=== PATIENT | male | born 1985 | race Caucasian/White ===

== ENCOUNTER 2018-02-20 08:57 | Emergency (ER) | payer SELFPAY ==
[~2018-02-20] VITALS: Ht 172.7 cm; Wt 75.0 kg
[2018-02-20 08:58] VITALS: BP 162/80; PULSE 87; RESP 16; TEMP 97.6; O2SAT 99
--- NOTE | 2018-02-20 09:12 | PD ---
HPI Chief Complaint: Injury Time Seen by Provider: 09:10 Travel History International Travel<30 days: No Contact w/Intl Traveler<30days: No Traveled to known affect area: No History of Present Illness HPI 32-year-old male presents emergency department for evaluation right foot pain 7 days. Patient does not recall an injury but states it is very painful around the medial distal aspect of the foot just prior to the great toe. He states that it was swollen but he is now developed a hard knot. Pain is constant, moderate. It is exacerbated with ambulation. He has not taken anything to alleviate it. He has no other symptoms to report. [facility] Past Medical History Medical History: Denies Significant Hx Social History Tobacco Use: Yes Allergies-Medications (Allergen,Severity, Reaction): Coded Allergies: No Known Allergies (Unverified , 02/20/18) Reported Meds & Prescriptions Reported Meds & Active Scripts Active Ibuprofen 800 Mg Tab 800 Mg PO Q8H PRN Review of Systems Except as stated in HPI: all other systems reviewed are Neg Physical Exam Narrative GENERAL: Well-nourished, well-developed male patient in no acute distress SKIN: Focused skin assessment warm/dry. HEAD: Normocephalic. EYES: No scleral icterus. No injection or drainage. NECK: Supple, trachea midline. No JVD or lymphadenopathy. CARDIOVASCULAR: Regular rate and rhythm without murmurs, gallops, or rubs. RESPIRATORY: Breath sounds equal bilaterally. No accessory muscle use. MUSCULOSKELETAL: No cyanosis, or edema. Tenderness elicited palpation over the MCP joint of the right first metatarsal. No deformity. No erythema or edema. BACK: Nontender without obvious deformity. No CVA tenderness. Data Data Last Documented VS Vital Signs Date Time Temp Pulse Resp B/P (MAP) Pulse Ox O2 Delivery O2 Flow Rate FiO2 02/20/18 08:58 97.6 87 16 162/80 (107) 99 Orders Orders Foot, Complete ([id number]) (02/20/18 ) Shoe Post Op (02/20/18 ) Ed Discharge Order (02/20/18 10:26) Shoe Cast (02/20/18 ) MDM Medical Decision Making Medical Screen Exam Complete: Yes Emergency Medical Condition: Yes Medical Record Reviewed: Yes Differential Diagnosis Gout versus arthritis versus sprain versus strain Narrative Course 32-year-old male presents emergency department for evaluation of foot pain. Physical exam is reassuring. There is no deformity. Affected extremity is neurovascularly intact. X-ray imaging confirms no acute bony abnormality. Patient is provided support splint, pain control, he is encouraged to follow-up with a primary care provider. He agrees to return immediately with acute worsening symptoms. Diagnosis Primary Impression: Right foot pain Referrals: Clinic Administrator Primary Care Physician Patient Instructions: General Instructions, Metatarsalgia (DC) Additional Instructions: Ice and elevate to reduce pain Alverto wrap for compression and comfort Postop shoe for support. This may help limit movement and improve your foot pain Follow-up with podiatry Follow-up with primary care provider Return immediately with acute worsening symptoms Med/Other Pt SpecificInfo: Prescription(s) given Scripts Ibuprofen (Ibuprofen) 800 Mg Tab 800 MG PO Q8H Y for Pain/Inflammation, #30 TAB 0 Refills Prov: Elisha Lozano 02/20/18 Disposition: 01 DISCHARGE HOME Condition: Stable Elisha Lozano February 20, 2018 09:12
--- NOTE | 2018-02-20 10:24 | RADRPT ---
EXAM DATE/TIME: 02/20/2018 10:09 [facility] COMPARISON: No previous studies available for comparison. INDICATIONS : Pain base great toe radiating into arch of foot. MEDICAL HISTORY : None. SURGICAL HISTORY : None. ENCOUNTER: Initial ACUITY: 4 - 6 days PAIN SCORE: 4/10 LOCATION: Right foot FINDINGS: Three view examination of the right foot demonstrates no soft tissue swelling, dislocation, or fractu re. The tarsal bones appear intact. The interphalangeal and metatarsophalangeal joints are intact. The calcaneus is intact. Bony mineralization is normal. CONCLUSION: Unremarkable examination. Suleiman Wheeler MD on February 20, 2018 at 10:21 Board Certified Radiologist. This report was verified electronically.
[2018-02-20] MEDS ORDERED: IBUP1TAB7 PO (10:28)
== END 2018-02-20 10:35 | disposition home or self-care (01) ==
LOC: NEPK 08:57
DX: M79.671 Pain in right foot (principal); Z72.0 Tobacco use
CPT/HCPCS: 73630; 99283; L3260

== ENCOUNTER 2018-04-12 12:46 | Emergency (ER) | payer SELFPAY ==
[~2018-04-12] VITALS: Ht 172.7 cm; Wt 74.0 kg
[~2018-04-12 12:46] MED LIST: IBUP1TAB7 PO
[2018-04-12 12:54] VITALS: BP 162/86; PULSE 102; RESP 16; TEMP 98.2; O2SAT 98
[2018-04-12] MEDS ORDERED: PENI500T PO (13:15)
[2018-04-12] MEDS ORDERED: IBUP1TAB7 PO (13:15)
[2018-04-12] MEDS ORDERED: MAGICADU2 SWISH-SPIT (13:15)
[2018-04-12] MEDS ORDERED: ACETAMINOPHEN/HYDROcodone 325 MG/5 MG TAB PO ONE (13:15)
--- NOTE | 2018-04-12 13:31 | PD ---
HPI Chief Complaint: Oral / Dental Pain or Problem Time Seen by Provider: 13:02 Travel History International Travel<30 days: No Contact w/Intl Traveler<30days: No Traveled to known affect area: No History of Present Illness HPI 32-year-old male presents emergency department for evaluation of right-sided jaw and facial pain that started earlier this week. Patient says that he has been "feeling off" this week and thought he may have been developing a sinus infection because of the pain in the right cheek. Says last night the pain increased and the patient became increasingly anxious because of the unusual sensation in his face. Says the pain in his right face is worse with touching and drinking cold fluids. It is relieved when not touched or pressure application. Says that the pain is occasionally severe but goes away within a couple minutes to a mild to moderate level. Says that the pain is sharp and aching. Says the pain radiates from his right jaw into his neck. He denies stiff neck. Denies fevers or chills. Of note, patient says that he was due to have his wisdom teeth removed when he was 18 however, he had no issues that did not have these removed. Also says that his top tooth broke this month after eating the radial and believes also may be a cause of his pain. He is not taking any medication to relieve his pain. He has not seen a dentist or his primary care physician regarding this concern. PFSH Past Surgical History Genitourinary Surgery: Yes (KIDNEY) Social History Alcohol Use: No Tobacco Use: Yes Substance Use: No Allergies-Medications (Allergen,Severity, Reaction): Coded Allergies: No Known Allergies (Unverified , 04/12/18) Reported Meds & Prescriptions Reported Meds & Active Scripts Active Ibuprofen 800 Mg Tab 800 Mg PO Q8H PRN 5 Days Magic Mouthwash Adult Liq (Multi-Ingredient Mouthwash/Gargle) 120 Ml Susp 10 Ml SWISH-SPIT ACHS Each 5mL contains: Nystatin 200,000units, Diphenhydramine 4.25mg, Viscous Lidocaine 10mg, Munoz syrup 0.8 mL Penicillin V Potassium 500 Mg Tab 500 Mg PO Q8H 7 Days Review of Systems Except as stated in HPI: all other systems reviewed are Neg Physical Exam Narrative GENERAL: Well-developed, well-nourished, anxious SKIN: Focused skin assessment warm/dry. HEAD: Atraumatic. Normocephalic. EYES: Pupils equal and round. No scleral icterus. No injection or drainage. ENT: No nasal bleeding or discharge. Mucous membranes pink and moist. NECK: Trachea midline. No JVD. Mild right sided anterior cervical adenopathy. Mild tenderness to palpation of the right jawline without significant edema. Mild tenderness palpation of the posterior upper right gumline without fluctuance. Lower posterior gum line with third molar appearing through the gumline. No fluctuance or discharge from the gums. Unable to locate the area of concern with the tooth fracture and the patient mentioned previously. CARDIOVASCULAR: Regular rate and rhythm. No murmur appreciated. RESPIRATORY: No accessory muscle use. Clear to auscultation. Breath sounds equal bilaterally. MUSCULOSKELETAL: No obvious deformities. No clubbing. No cyanosis. No edema. NEUROLOGICAL: Awake and alert. No obvious cranial nerve deficits. Motor grossly within normal limits. Normal speech. PSYCHIATRIC: Appropriate mood and affect; insight and judgment normal. Data Data Last Documented VS Vital Signs Date Time Temp Pulse Resp B/P (MAP) Pulse Ox O2 Delivery O2 Flow Rate FiO2 04/12/18 12:54 98.2 102 16 162/86 (111) 98 Orders Orders Acetamin-Hydrocod 325-5 Mg ([place] 5-325 (04/12/18 13:15) MDM Medical Decision Making Medical Screen Exam Complete: Yes Emergency Medical Condition: Yes Differential Diagnosis Dental infection, trigeminal neuralgia, tooth abscess, fractured tooth Narrative Course 32-year-old male presents emergency department for evaluation of right jaw and tooth pain started approximately 1 week ago. Says the pain worsened last night so decided to come to emergency department today for evaluation. Says initially thought this was a sinus infection however, he is concerned that is related to his tooth. Vital signs are stable. His exam findings consistent with a probable tooth infection of the right lower jaw. No areas of fluctuance. No discharge from the site. Possible developing oral candidiasis with white patches in the right upper gumline. Hydrocodone administered in the emergency department for pain. Patient will be discharged with penicillin, Magic mouthwash, and ibuprofen. History of advised to follow-up with a dentist. Consider following up with [facility] as well. Diagnosis Primary Impression: Dental infection Referrals: [facility] Dentist Patient Instructions: General Instructions, Toothache (ED) Additional Instructions: Take all medication as prescribed. You may use salt water gargles as well for your symptoms. He may also use Tylenol for your pain. Follow-up with the dentist within 1 week. Consider following up with her primary care physician as well. Scripts Ibuprofen (Ibuprofen) 800 Mg Tab 800 MG PO Q8H Y for Pain/Inflammation for 5 Days, #15 TAB 0 Refills Prov: Paula Hernandez MD 04/12/18 Jwokbric-Ulqjzawxjewqtyo-Cjwhauzcs Liq (Magic Mouthwash Adult Liq) 120 Ml Susp 10 ML SWISH-SPIT ACHS for Mouth sores, #120 ML 0 Refills Each 5mL contains: Nystatin 200,000units, Diphenhydramine 4.25mg, Viscous Lidocaine 10mg, Munoz syrup 0.8 mL Prov: Paula Hernandez MD 04/12/18 Penicillin V Potassium (Penicillin V Potassium) 500 Mg Tab 500 MG PO Q8H for Infection for 7 Days, #21 TAB 0 Refills Prov: Paula Hernandez MD 04/12/18 Disposition: 01 DISCHARGE HOME Condition: Stable Audrey Arrington Apr 12, 2018 13:31
== END 2018-04-12 13:50 | disposition home or self-care (01) ==
LOC: PHEFT 12:46
DX: K04.7 Periapical abscess without sinus (principal); R68.84 Jaw pain; Z72.0 Tobacco use
CPT/HCPCS: 99283